=== PATIENT | female | born 1965 | race Caucasian/White ===

== ENCOUNTER 2019-12-15 16:56 | Emergency (ER) | payer BC, OTHER ==
--- OUTSIDE RECORDS SUMMARY | 2019-12-15 16:59 | XMS REPORT | Summary of Care ---
:1965 Author Organization [facility] Address [address] [place] [id number] Care Team Providers Name Role Phone Jarrod Mahoney MD Primary Care Provider Reason for Referral Radiology Services (Routine) Status Reason Specialty Diagnoses / Referred By Referred To Procedures Contact Contact Closed Diagnostic Diagnoses Pain in joint, multiple sites Larisa Schroedera, Radiology Procedures XR HAND 3+ VW BILATERAL MD [address] [place] [address] Radiology Services (Routine) Status Reason Specialty Diagnoses / Referred By Referred To Procedures Contact Contact Closed Diagnostic Diagnoses Pain in joint, multiple sites Jenifer Schroederjana, Radiology Procedures XR HAND 3+ VW BILATERAL MD [address] [place] [address] Reason for Visit Auth/Cert Status Reason Specialty Diagnoses / Procedures Referred By C ontact Referred To Contact Radiology Diagnoses Pain in unspecified joint Adc X-Ray Procedures CHG CHEST X-RAY [address] [place] [address] Phone: Fax: Encounter Details Date Type Department Care Team Description 03/06/2019 Hospital Encounter On license of [facility]iolog y Arrived [facility] [address] [place] [address] [place] [address] [place] [phone] Allergies Active Allergy Reactions Severity Noted Date Comments Bee Sting / Venom Swelling 06/08/2017 documented as of this encounter (statuses as of 03/07/2019) Medications Medication Sig Dispensed Refills Start Date End Date Status buprenorphine (BUTRANS) Apply to skin. 0 Active 20 mcg/hour [facility] buprenorphine HCl Place in cheeks 0 Active (BELBUCA) 150 mcg Film 2 (two) times daily as needed. gabapentin 800 mg Take 800 mg by 0 Active tablet mouth 3 (three) times daily. DULoxetine 60 mg Take 1 capsule 90 capsule 3 08/03/2017 Active capsuleIndications: by mouth daily. Anxiety and depression pantoprazole 40 mg EC Take 1 tablet by 90 tablet 1 09/05/2017 Active tabletIndications: mouth daily. Gastroesophageal reflux disease without esophagitis cyclobenzaprine 5 mg Take 1 tablet by 30 tablet 0 10/30/2017 Active tablet mouth 3 (three) times daily. acetaminophen-codeine Take 2 tablets 20 tablet 0 07/08/2018 Active (TYLENOL-CODEINE #3) by mouth every 6 300-30 mg tablet (six) hours as needed for Pain (scale 7-10) (alternate with ibuprofen). sucralfate 1 gram Take 1 tablet by 30 tablet 0 01/23/2019 Active tabletIndications: mouth before Peptic ulcer disease meals and at bedtime. dicyclomine (BENTYL) 10 Take 1 capsule 30 capsule 0 01/23/2019 Active mg capsuleIndications: by mouth every 8 Peptic ulcer disease (eight) hours as needed for Abdominal pain. ondansetron 4 mg Take 1 tablet by 20 tablet 0 01/23/2019 Active disintegrating mouth every 8 tabletIndications: (eight) hours as Peptic ulcer disease needed for Nausea and Vomiting (N/V). sennosides-docusate Take 1 tablet by 30 tablet 0 01/23/2019 Active sodium (COLACE 2-IN-1) mouth daily. 8.6-50 mg per tabletIndications: Constipation, unspecified constipation type documented as of this encounter (statuses as of 03/07/2019) Active Problems Problem Noted Date Vaginal hemorrhage 07/08/2018 Chronic low back pain 04/01/2017 Follow-up examination, following other surgery 012 documented as of this encounter (statuses as of 03/07/2019) Social History Tobacco Use Types Packs/Day Years Used Date Current Every Day Smoker Cigarettes 0.5 Smokeless Tobacco: Former User Q uit: 10/05/2011 Alcohol Use Drinks/Week oz/Week Comments No Sex Assigned at Date Recorded Not on file Job Start Date Occupation Industry Not on file Not on file Not on file Travel History Travel Start Travel End No recent travel history available. documented as of this encounter Last Filed Vital Signs Not on filedocumented in this encounter Plan of Treatment Health Maintenance Due Date Last Done Comments HEPATITIS C (HCV) SCREEN 1965 PNEUMOCOCCAL 0-64 YEARS COMBINED SERIES (1 of 1 - 1969 PPSV23) DTaP,Tdap,and Td Vaccines (1 - Tdap) 1982 MAMMOGRAM 2003 PAP SMEAR 02/03/2010 02/03/2007 COLONOSCOPY 2013 Zoster Recombinant Vaccine (SHINGRIX) (1 of 2) 2013 LUNG CANCER SCREEN: Recommended for age 55-80 with 30 2018 + pack year history INFLUENZA VACCINE 04/08/2019 documented as of this encounter Procedures Procedure Name Priority Date/Time Associated Diagnosis Comme nts XR HAND 3+ VW Routine 03/06/2019 12:34 PM Pain in joint, Resul ts for this BILATERAL CDT multiple sites procedure are in the results section. documented in this encounter Results XR HAND 3+ VW BILATERAL (03/06/2019 12:34 PM CDT) Specimen Narrative Performed At This result has an attachment that is no t available. HISTORY:Pain. PACS/VR/DOSE FINDINGS: AP, lateral, oblique views of right hand as well as left hand showed no acute fracture or dislocation. Old, healed f racture deformity in the distal shaft of metacarpal bone of right little fi nger noted. Mild degenerative type arthritis seen in the interphal angeal joints of all the fingers and thumb, in the intercarpal joint betwee n scaphoid and multangular bones and slightly more degenerative arthr itis noted in the carpometacarpal joint of the right thumb and left thum b. No bony erosions or juxta-articular osteoporosis detected. No soft tiss ue calcifications. CONCLUSIONS: No acute fracture or dislocation in right hand or left hand. Procedure Note [facility], Radiant Results Inft User - 2018 12:42 PM CDT HISTORY: Pain. FINDINGS: AP, lateral, oblique views of right hand as well as left hand showed no acute fracture or dislocation. Old, healed fracture deformity in the distal shaft of metacarpal bone of r ight little finger noted. Mild degenerative type arthritis seen in the interphalangeal joints of all the fingers and thumb, in the intercarpa l joint between scaphoid and multangular bones and slightly more dege nerative arthritis noted in the carpometacarpal joint of the right thumb and left thumb. No bony erosions or juxta-articular osteoporosis detected . No soft tissue calcifications. CONCLUSIONS: No acute fracture or disloc ation in right hand or left hand. Performing Organization Address City/State/Zipcode Phone Number PACS/VR/DOSE documented in this encounter Visit Diagnoses Diagnosis Pain in joint, multiple sites documented in this encounter Insurance Payer Benefit Plan / Subscriber ID Effective Phone Address T ype Group Dates [facility] MEDICARE [id number] 2019-Erica butler [facility] HEALTHCARE COMPLETE nt PPO MEDICARE CHOICE ADVANTAGE documented as of this encounter
--- OUTSIDE RECORDS SUMMARY | 2019-12-15 16:59 | XMS REPORT | Summary of Care ---
:1965 Author Organization [facility] Address [address] [place] [address] Care Team Providers Name Role Phone Jarrod Mahoney MD Primary Care Provider Reason for Referral Radiology Services (Routine) Status Reason Specialty Diagnoses / Referred By Referred To Procedures Contact Contact Closed Diagnostic Diagnoses Pain in joint, multiple sites Ivory Schroeder, Radiology Procedures XR FOOT 3+ VW RIGHT MD [address] [place] [address] Radiology Services (Routine) Status Reason Specialty Diagnoses / Referred By Referred To Procedures Contact Contact Closed Diagnostic Diagnoses Pain in joint, multiple sites Ivory Schroeder, Radiology Procedures XR FOOT 3+ VW RIGHT MD [address] [place] [address] Reason for Visit Auth/Cert Status Reason Specialty Diagnoses / Procedures Referred By C ontact Referred To Contact Radiology Diagnoses Pain in unspecified joint Adc X-Ray Procedures CHG CHEST X-RAY [address] [place] [address] Phone: Fax: Encounter Details Date Type Department Care Team Description 03/06/2019 Hospital Encounter [facility]iolog [facility] Arrived [facility] [address] [place] [address] [place] [address] [place] [phone] Allergies Active Allergy Reactions Severity Noted Date [...] Priority Date/Time Associated Diagnosis Comme nts XR FOOT 3+ VW Routine 03/06/2019 12:33 PM Pain in joint, Resu lts for this RIGHT CDT multiple sites procedure are in the results section. documented in this encounter Results XR FOOT 3+ VW RIGHT (03/06/2019 12:33 PM CDT) Specimen Narrative Performed At This result has an attachment that is no t available. HISTORY:Pain. PACS/VR/DOSE FINDINGS: AP, lateral, oblique views of right foot aubrey wed no acute fracture or dislocation. Mild first metatarsus valgus deformity noted with mild degenerative changes in first MTP joint. No heel spur. . CONCLUSIONS: No acute fracture or dislocation in right foot. Procedure Note [facility], Radiant Results Inft User - 2018 12:44 PM CDT HISTORY: Pain. FINDINGS: AP, lateral, oblique views of right foot showed no acute fracture or dislocation. Mild first metatarsus va lgus deformity noted with mild degenerative changes in first MTP joint. No heel spur.. CONCLUSIONS: No acute fracture or disloc ation in right foot. Performing Organization Address City/State/Zipcode Phone Number PACS/VR/DOSE documented in this encounter Visit Diagnoses Diagnosis Pain in joint, multiple sites documented in this encounter Insurance Payer Benefit Plan / Subscriber ID Effective Phone Address T ype Group Dates [facility] MEDICARE [id number] 2019-Erica butler [facility] HEALTHCARE COMPLETE nt PPO MEDICARE CHOICE ADVANTAGE documented as of this encounter
--- OUTSIDE RECORDS SUMMARY | 2019-12-15 16:59 | XMS REPORT ---
:1965 Author Organization [employer] Care Team Providers Name Role Phone Irlanda Schroederbambi Provider Role Unavailable Allergies No Known Allergies Problems Problem Type Condition Code Onset Dates Condition Statu s Problem Chronic or unspecified peptic ulcer, K27.4 Active site unspecified, with hemorrhage Problem Fibromyalgia M79.7 Active Problem Chronic pain syndrome G89.4 Active Problem Anxiety F41.9 Active Problem Arthralgia of multiple joints M25.50 Active Problem Encounter for immunization Z23 A ctive Problem Chronic hepatitis C B18.2 Active Medications No Known Medications Results No Known Results Summary Purpose [employer]Clinical[employer] Submission
--- OUTSIDE RECORDS SUMMARY | 2019-12-15 16:59 | XMS REPORT | Continuity of Care Document ---
:1965 Author Organization [employer] Information [place] Care Team Providers Name Role Phone Fishidy Unavailable Un available Problems Problem Status Onset Classification Date Comments Sourc e Date Reported Vaginal Active 12/04/2019 [facility] hemorrhage 8 Health Chronic low back Active 12/04/2019 [facility] pain 7 Health Follow-up Active 12/04/2019 [facility] examination, 2 Health following other surgery Chronic or Active Problem 05/27/[address] unspecified of [place] peptic ulcer, site unspecified, with hemorrhage Fibromyalgia Active Problem 05/27/2019 [facility] [place] Chronic pain Active Problem 05/27/2019 [facility] syndrome [facility] [place] Anxiety Active Problem 05/27/2019 [facility] [place] Arthralgia of Active Problem 05/27/2019 [facility] multiple joints of H ou Encounter for Active Problem 05/27/2019 [facility] immunization [facility] [place] Chronic Active Problem 05/27/2019 [facility] hepatitis C of [place] Pain in joint, Active 03/07/2019 [facility] multiple sites Healt h Arthralgia of Active 03/07/2019 [facility] hip, unspecified Hea lth laterality Left knee pain, Active 10/27/2019 [facility] B unspecified Health chronicity COVID-19 Active 11/30/2019 [facility] Health Esophageal Active 12/04/2019 [facility] dysphagia Health Medications Medication Details Route Status Patient Ordering Order Source Instructions Provider Date methylPREDNISolone Take by Oral Active [facility] (MEDROL, SEAMUS,) 4 mg mouth 2019 Heal tablets SEE-INSTRUC TIONS. follow package directions ibuprofen 600 mg Take 1 Oral Active 06/05/ [facility] tablet tablet by 2018 Health mouth every 8 (eight) hours as needed for Pain (scale 4-6). sucralfate 1 gram Take 1 Oral Active 01/23/ [facility] tablet tablet by 2018 Health mouth before meals and at bedtime. dicyclomine (BENTYL) Take 1 Oral Active 01/23/ [facility] 10 mg capsule capsule by 2019 Health mouth every 8 (eight) hours as needed for Abdominal pain. ondansetron 4 mg Take 1 Oral Active 01/23/ [facility] disintegrating tablet by 2018 Health tablet mouth every 8 (eight) hours as needed for Nausea and Vomiting (N/V). sennosides-docusate Take 1 Oral Active 01/23/ [facility] sodium (COLACE tablet by 2018 [facility] 2-IN-1) 8.6-50 mg mouth per tablet daily. acetaminophen-codein Take 2 Oral Active 07/08/ [facility] e (TYLENOL-CODEINE tablets by 2018 He alth #3) 300-30 mg tablet mouth every 6 (six) hours as needed for Pain (scale 7-10) (alternate with ibuprofen). cyclobenzaprine 5 mg Take 1 Oral Active 10/30/ [facility] tablet tablet by 2018 Health mouth 3 (three) times daily. pantoprazole 40 mg Take 1 Oral Active 09/05/ [facility] EC tablet tablet by 2018 Health mouth daily. DULoxetine 60 mg Take 1 Oral Active 08/03/ [facility] capsule capsule by 2016 Health mouth daily. buprenorphine Apply to Transdermal Active [facility] (BUTRANS) 20 skin. (Apply To Health mcg/hour [facility] Skin) buprenorphine HCl Place in Buccal Active [facility] (BELBUCA) 150 mcg cheeks 2 Healt h Film (two) times daily as needed. gabapentin 800 mg Take 800 mg Oral Active [facility] tablet by mouth 3 Health (three) times daily. Allergies, Adverse Reactions, Alerts Substance Category Reaction Severity Reaction Status Date Comments S ource type Reported Bee Sting / Swelling Propensity Active [facility] Venom to adverse 7 Healt h reactions Immunizations No Data Provided for This Section Results No Data Provided for This Section Pathology Reports No Data Provided for This Section Diagnostic Reports Report Value Date Source XR KNEE <3 VW LEFT Maintained joint interval 10/26/2019 [facility] XR LUMBAR SPINE 2 VW HISTORY:Low back pain. 03/06/2019 [facility] Health FINDINGS: AP and lateral views of lumbar spines are obtained and compared with 02/15/2017 study. 6 lumbar vertebrae with no acute compression fracture or dislocation. No aggressive bone lesions. Exaggerated lumbar lordosis in the lateral view and lower lumbar levoscoliosis in the AP view noted, associated w ith moderate degenerative disc disease affecting right side of L5-L6. Mild changes of degenerative disc disease noted at L4-L5 with slightly narrow ed disc space and osteophytes along the ventral and lateral verteb ral margins. Mild facet arthritis noted at lower 3 lumbar lev els. Comparison with the previous study of 06/27/2017 showed no significant interval change. CONCLUSIONS: 6 lumbar vertebral body with lower lumbar levoscoliosis, exaggerated lordosis, degenerative disc disease at L4-L5 and L5-L6, lower 3 lumbar level facet arthritis, essentially unchan ged when compared to 02/15/2017 study. [facility], Radiant Results Inft U ser - 03/06/2019 12:46 PM CDTHISTORY: Low back pain. FINDINGS: AP and lateral views of lumbar spines are obtained and compared with 02/15/2017 study. 6 lumbar vertebrae with no acute compression fracture or dislocation. No aggressive bone lesions. Exaggerated lumbar lordosis in the lateral view and lower lumbar levoscoliosis in the AP view noted, associated w ith moderate degenerative disc disease affecting right side of L5-L6. Mild changes of degenerative disc disease noted at L4-L5 with slightly narrow ed disc space and osteophytes along the ventral and lateral verteb ral margins. Mild facet arthritis noted at lower 3 lumbar lev els. Comparison with the previous study of 06/27/2017 showed no significant interval change. CONCLUSIONS: 6 lumbar vertebral body with lower lumbar levoscoliosis, exaggerated lordosis, degenerative disc disease at L4-L5 and L5-L6, lower 3 lumbar level facet arthritis, essentially unchan ged when compared to 02/15/2017 study. XR FOOT 3+ VW RIGHT HISTORY:Pain. 03/06/2019 [facility] Health FINDINGS: AP, lateral, oblique views of right fo ot showed no acute fracture or dislocation. Mild first metatarsus valgus def ormity noted with mild degenerative changes in first MTP joint. No heel spur.. CONCLUSIONS: No acute fracture or dislocation in right foot. [facility], Radiant Results Inft User - 03/06/2019 12: 44 PM CDTHISTORY: Pain. FINDINGS: AP, lateral, oblique views of right fo ot showed no acute fracture or dislocation. Mild first metatarsus valgus def ormity noted with mild degenerative changes in first MTP joint. No heel spur.. CONCLUSIONS: No acute fracture or dislocation in right foot. XR SACROILIAC JOINTS <3 HISTORY:Pain. 03/06/2019 [facility] Hea lth VW FINDINGS: AP and both right and left oblique vie ws of the pelvis showed no acute fracture or dislocation. No aggressive bon e lesions. No significant changes of arthritis in the sacroiliac joints or hip joints. Lumbar levoscoliosis with degenerative disc disease in the right side of L4-L5 noted. Mild constipation noted. CONCLUSIONS: No acute fracture or dislocation in pelvis. [facility], Radiant Results Inft User - 03/06/2019 12: 43 PM CDTHISTORY: Pain. FINDINGS: AP and both right and left oblique vie ws of the pelvis showed no acute fracture or dislocation. No aggressive bon e lesions. No significant changes of arthritis in the sacroiliac joints or hip joints. Lumbar levoscoliosis with degenerative disc disease in the right side of L4-L5 noted. Mild constipation noted. CONCLUSIONS: No acute fracture or dislocation in pelvis. XR HIPS 2 VW LEFT HISTORY:Pain. 03/06/2019 [facility] Health FINDINGS: AP and lateral views of left hip showe d no acute fracture or dislocation. No significant changes of arthritis or aggressive bone lesions seen. No signs of AVN in the femoral head. A sma ll benign cyst noted in the neck of the femur. CONCLUSIONS: Essentially normal study. [facility]06/2019 12: 42 PM CDTHISTORY: Pain. FINDINGS: AP and lateral views of left hip showe d no acute fracture or dislocation. No significant changes of arthritis or aggressive bone lesions seen. No signs of AVN in the femoral head. A sma ll benign cyst noted in the neck of the femur. CONCLUSIONS: Essentially normal study. XR HAND 3+ VW BILATERAL HISTORY:Pain. 03/06/2019 [facility] Hea lth FINDINGS: AP, lateral, oblique views of right tang nd as well as left hand showed no acute fracture or dislocation. Old, he aled fracture deformity in the distal shaft of metacarpal bone of right lit tle finger noted. Mild degenerative type arthritis seen in the int erphalangeal joints of all the fingers and thumb, in the intercarpal joint between scaphoid and multangular bones and slightly more degenerative arthritis noted in the carpometacarpal joint of the right thumb and lef t thumb. No bony erosions or juxta-articular osteoporosis detected. No sof t tissue calcifications. CONCLUSIONS: No acute fracture or dislocation in right hand or left hand. [facility], Radiant Results Inft User - 03/06/2019 12: 42 PM CDTHISTORY: Pain. FINDINGS: AP, lateral, oblique views of right tang nd as well as left hand showed no acute fracture or dislocation. Old, he aled fracture deformity in the distal shaft of metacarpal bone of right lit tle finger noted. Mild degenerative type arthritis seen in the int erphalangeal joints of all the fingers and thumb, in the intercarpal joint between scaphoid and multangular bones and slightly more degenerative arthritis noted in the carpometacarpal joint of the right thumb and lef t thumb. No bony erosions or juxta-articular osteoporosis detected. No sof t tissue calcifications. CONCLUSIONS: No acute fracture or dislocation in right hand or left hand. XR FOOT 3+ VW LEFT HISTORY:Pain. 03/06/2019 [facility] Health FINDINGS: AP, lateral, oblique views of left ana cristina t showed no acute fracture or dislocation. Mild first metatarsus valgus not ed with minimal degenerative arthritis in first MTP joint. No he el spur. CONCLUSIONS: No acute fracture or dislocation in left foot. [facility], Radiant Results Inft User - 03/06/2019 12: 40 PM CDTHISTORY: Pain. FINDINGS: AP, lateral, oblique views of left ana cristina t showed no acute fracture or dislocation. Mild first metatarsus valgus not ed with minimal degenerative arthritis in first MTP joint. No he el spur. CONCLUSIONS: No acute fracture or dislocation in left foot. XR CHEST 2 VW HISTORY: Pain in joint, multiple sites. 03/06/20 19 [facility] Health TECHNIQUE: PA and lateral views of the chest are obtained. Comparison is made with 10/30/2017 study. FINDINGS: No acute pneumonia detected. No pneumo thorax or pleural effusion or pulmonary congestion. Cardiothoracic ratio of approximately 11.8/27.2 cm is consistent with normal cardiac size. Mild obs tructive lung disease, calcified granuloma in the retrosternal anterior left lung and lower cervical spine surgical changes noted. No compre ssion fracture deformity in the thoracic vertebral bodies or any aggressive bone lesions visualized. CONCLUSIONS: Mild pulmonary emphysema. No acute cardiomegaly disease. [facility], [facility] Results Inft U ser - 03/06/2019 12:35 PM CDTHISTORY: Pain in joint, multiple sites. TECHNIQUE: PA and lateral views of the chest are obtained. Comparison is made with 10/30/2017 study. FINDINGS: No acute pneumonia detected. No pneumo thorax or pleural effusion or pulmonary congestion. Cardiothoracic ratio of approximately 11.8/27.2 cm is consistent with normal cardiac size. Mild obs tructive lung disease, calcified granuloma in the retrosternal anterior left lung and lower cervical spine surgical changes noted. No compre ssion fracture deformity in the thoracic vertebral bodies or any aggressive bone lesions visualized. CONCLUSIONS: Mild pulmonary emphysema. No acute cardiomegaly disease. Consultation Notes No Data Provided for This Section Discharge Summaries No Data Provided for This Section History and Physicals No Data Provided for This Section Vital Signs Vital Sign Value Date Comments Source Systolic (mm Hg) 158 12/03/2019 [facility] Health Diastolic (mm Hg) 96 12/03/2019 [facility] Healt h Heart Rate 59 12/03/2019 [facility] Health Respitory Rate 20 12/03/2019 [facility] Health Temperature Oral (F) 36.33 Mari 12/03/2019 [facility] He alth Temperature Oral (F) 36.78 Mari 11/30/2019 [facility] He alth Height 172.7 cm 11/30/2019 [facility] Health Weight 59 11/30/2019 [facility] Health Systolic (mm Hg) 151 10/26/2019 [facility] Health Diastolic (mm Hg) 81 [facility] 117 10/26/2019 [facility] Height 172.7 cm 10/26/2019 [facility] Weight 56.7 10/26/2019 [facility] Encounters Location Location Encounter Encounter Reason Attending ADM DC Stat us Source Details Type Number For Provider Date Date Visit [facility] Orders [id number] No Doctor 03/06 [facility] Only [facility] [id number] Radiology 03/06 03/06 [facility] Encounter /2018 [facility] [id number] Radiology 03/06 03/06 [facility] Encounter /2018 [facility] [id number] Radiology 03/06 03/06 [facility] Encounter /2018 [facility] [id number] Radiology 03/06 03/06 [facility] Encounter /2018 [facility] [id number] Radiology 03/06 03/06 [facility] Encounter /2018 [facility] [id number] Radiology 03/06 03/06 [facility] [id number] Radiology 03/06 03/06 [facility] [id number] Radiology 03/06 03/07 [facility] Encounter /2018 Eze [facility] Radiology [facility] Health Office [id number] Mino 10/25 10/25 [facility] Arnaud [facility]ADOR /2019 Health Surgery- [facility] [id number] Mino 10/25 10/26 [facility] Encounter Arnaud AMADOR /2019 [facility] Orthopedics - Radiology [facility] Health Telephone [id number] Nizar 11/29 [facility] Nurse [id number] Nizar 11/29 11/29 [facility] /2019 He helio Merchant MD - [facility] [id number] Nizar 12/02 12/02 [facility] Enrrique [facility] Procedures Procedure Code Date Perfomer Comments Source ESOPHAGOGASTRODUODENOSCOPY [id number] 12/03/19 [facility] 20 Health EGD (ENDO) 94324 12/03/19 Williamson [facility] 20 Health CONSENT/REFUSAL FOR DIAGNOSIS 60528 12/03/19 Doctor [facility] 20 Unassigned Health ASSIGNMENT OF BENEFITS 92994 12/03/19 Doctor [facility] 20 Unassigned Health DAY SURGERY - ADC 34808 12/03/19 Doctor [facility] 20 Unassigned Health XR KNEE <3 VW LEFT 94243 10/26/19 Arnaud [facility] 20 Health XR SACROILIAC JOINTS <3 VW 61295 03/06/20 [facility] 19 Health XR LUMBAR SPINE 2 VW 81472 03/06/20 Requisition [facility] 19 Health XR HIPS 2 VW LEFT 00907 03/06/20 Requisition [facility] 19 Health XR HAND 3+ VW BILATERAL 96035 03/06/20 [facility]quisition [facility] Health XR FOOT 3+ VW RIGHT 60424 03/06/20 Requisition [facility] 19 Health XR FOOT 3+ VW LEFT 57107 03/06/20 Requisition [facility] 19 Health XR CHEST 2 VW 54825 03/06/20 Requisition [facility] 19 Health Assessment and Plan No Data Provided for This Section Plan of Care Plan of Care Date Source SURGICAL PATHOLOGY EXAM 12/03/2019 [facility] Health LAB Routine ONCE for 1 Occurrences starting 12/03/2019 SURGICAL PATHOLOGY EXAM 12/03/2019 [facility] Health LAB STAT 12/03/2019 8:55 AM CDT Upcoming EncountersDateTypeSpecialtyCare TeamDescription [facility] 12/03/2019 Hospital Encounter Surgery Felix Trujillo MD[address] [place] [id number] [facility] [place] [phone] (Fax) 12/03/2019 Anesthesia Event Surgery Herbie Kirkland[address] [phone] (Fax) 12/03/2019 Surgery Surgery Felix Trujillo MD[address] [id number] [place] [phone] (Fax) ESOPHAGOGASTRODUODENOSCOPY Health MaintenanceDue DateLast DoneComments HEPATITIS C (HCV) SCREEN 1965 PNEUMOCOCCAL 0-64 YEARS COMBINED SERIES (1 of 1 - PPSV23) 1969 DTaP,Tdap,and Td Vaccines (1 - Tdap) 1974 Breast Cancer Screening (MAMMOGRAM) 2003 PAP SMEAR 02/03/2010 02/03/2007 COLONOSCOPY 2013 Zoster Recombinant Vaccine (SHINGRIX) (1 of 2) 2013 LUNG CANCER SCREEN: Recommended for age 55-80 with 30 + pack year history 2018 INFLUENZA VACCINE (#1) 2019 documented as of this encounter Upcoming EncountersDateTypeSpecialtyCare TeamDescription [facility] 12/03/2019 Hospital Encounter Surgery Felix Trujillo MD[address] [id number] [place] [phone] (Fax) 12/03/2019 Anesthesia Event Surgery Esdras Kirklandian, [address] [phone] (Fax) 12/03/2019 Surgery Surgery Felix Trujillo MD[address] [id number] [place] [phone] (Fax) ESOPHAGOGASTRODUODENOSCOPY Scheduled OrdersNameTypePriorityAssociated DiagnosesOrder Sc hedule CORONAVIRUS COVID-19 TESTING LAB Routine COVID-19 Expected: 11/30/2019, Expires: 11/29/2020 Health MaintenanceDue DateLast DoneComments HEPATITIS C (HCV) SCREEN 1965 PNEUMOCOCCAL 0-64 YEARS COMBINED SERIES (1 of 1 - PPSV23) 1969 DTaP,Tdap,and Td Vaccines (1 - Tdap) 1974 Breast Cancer Screening (MAMMOGRAM) 2003 PAP SMEAR 02/03/2010 02/03/2007 COLONOSCOPY 2013 Zoster Recombinant Vaccine (SHINGRIX) (1 of 2) 2013 LUNG CANCER SCREEN: Recommended for age 55-80 with 30 + pack year history 2018 INFLUENZA VACCINE (#1) 2019 documented as of this encounter CORONAVIRUS COVID-19 TESTING 11/30/2019 [facility] Health LAB Routine COVID-19 Expected: 11/30/2019, Expires: 11/29/2020 INFLUENZA VACCINE (#1) 2019 [facility] Upcoming EncountersDateTypeSpecialtyCare TeamDescription [facility] Health 03/06/2019 Appointment Radiology 03/06/2019 Appointment Radiology 03/06/2019 Appointment Radiology 03/06/2019 Appointment Radiology 03/06/2019 Appointment Radiology 03/06/2019 Appointment Radiology 03/06/2019 Appointment Radiology Health MaintenanceDu DateLast DoneComments HEPATITIS C (HCV) SCREEN 1965 PNEUMOCOCCAL 0-64 YEARS COMBINED SERIES (1 of 1 - PPSV23) 1969 DTaP,Tdap,and Td Vaccines (1 - Tdap) 1982 MAMMOGRAM 2003 PAP SMEAR 02/03/2010 02/03/2007 COLONOSCOPY 2013 Zoster Recombinant Vaccine (SHINGRIX) (1 of 2) 2013 LUNG CANCER SCREEN: Recommended for age 55-80 with 30 + pack year history 2018 INFLUENZA VACCINE 04/08/2019 documented as of this encounter LUNG CANCER SCREEN: Recommended for age 55-80 2018 [facility] with 30 + pack year history LUNG CANCER SCREEN: Recommended for age 55-80 2018 [facility] with 30 + pack year history Zoster Recombinant Vaccine (SHINGRIX) (1 of 2) 2013 [facility] Health COLONOSCOPY 2013 [facility] PAP SMEAR 02/03/2010 [facility] PAP SMEAR 02/03/2010 [facility] MAMMOGRAM 2003 [facility] Breast Cancer Screening (MAMMOGRAM) 2003 [facility] DTaP,Tdap,and Td Vaccines (1 - Tdap) 1982 [facility] Health DTaP,Tdap,and Td Vaccines (1 - Tdap) 1974 [facility] Health PNEUMOCOCCAL 0-64 YEARS COMBINED SERIES (1 of 1 1969 [facility] - PPSV23) HEPATITIS C (HCV) SCREEN 1965 [facility] HEPATITIS C (HCV) SCREEN 1965 [facility] Social History Social History Date Source Tobacco UseTypesPacks/DayYears UsedDate 11/30/2019 [facility] Current Every Day Smoker Cigarettes 0.5 Smokeless Tobacco: Former User Quit: 10/05/2011 Tobacco Cessation: Ready to Quit: No Alcohol UseDrinks/Weekoz/WeekComments No Sex Assigned at BirthDate Recorded Not on file Job Start DateOccupationIndustry Not on file Not on file Not on file Travel HistoryTravel StartTravel End No recent travel history available. COVID-19 ExposureResponseDate Recorded In the last month, have you been in cont act with someone who was confirmed or suspected to have Coronavirus / COVID-19? No / Unsure 12/03/2019 7:43 AM CDT documented as of this encounter Family History No Data Provided for This Section Advance Directives No Data Provided for This Section Functional Status No Data Provided for This Section
--- OUTSIDE RECORDS SUMMARY | 2019-12-15 16:59 | XMS REPORT | Summary of Care ---
:1965 Author Organization [facility] Address [address] [place] [id number] Care Team Providers Name Role Phone Jarrod Mahoney MD Primary Care Provider Reason for Referral Radiology Services (Routine) Status Reason Specialty Diagnoses / Referred By Referred To Procedures Contact Contact Closed Diagnostic Diagnoses Arthralgia of hip, unspecified laterality [facility] Procedures XR HIPS 2 VW LEFT [address] [place] [address] Radiology Services (Routine) Status Reason Specialty Diagnoses / Referred By Referred To Procedures Contact Contact Closed Diagnostic Diagnoses Arthralgia of hip, unspecified laterality [facility], [facility] Procedures XR HIPS 2 VW LEFT [address] [place] [address] Reason for Visit Auth/Cert Status Reason Specialty Diagnoses / Procedures Referred By C ontact Referred To Contact Radiology Diagnoses Pain in unspecified joint [facility] X-Ray Procedures CHG CHEST X-RAY [address] [place] [address] Phone: Fax: Encounter Details Date Type Department Care Team Description 03/06/2019 Hospital Encounter [facility] Radiolog y Arrived [facility] [address] [place] [address] [place] [address] [place] [address] Allergies Active Allergy Reactions Severity Noted Date [...] Priority Date/Time Associated Diagnosis Comme nts XR HIPS 2 VW LEFT Routine 03/06/2019 12:34 PM Arthralgia of hi p, Results for this CDT unspecified procedure are i n laterality the results section. documented in this encounter Results XR HIPS 2 VW LEFT (03/06/2019 12:34 PM CDT) Specimen Narrative Performed At This result has an attachment that is no t available. HISTORY:Pain. PACS/VR/DOSE FINDINGS: AP and lateral views of left hip showed no a cute fracture or dislocation. No significant changes of arthritis or ag gressive bone lesions seen. No signs of AVN in the femoral head. A small maude ign cyst noted in the neck of the femur. CONCLUSIONS: Essentially normal study. Procedure Note [facility], Radiant Results Inft User - 2018 12:42 PM CDT HISTORY: Pain. FINDINGS: AP and lateral views of left h ip showed no acute fracture or dislocation. No significant changes of a rthritis or aggressive bone lesions seen. No signs of AVN in the femoral hea d. A small benign cyst noted in the neck of the femur. CONCLUSIONS: Essentially normal study. Performing Organization Address City/State/Zipcode Phone Number PACS/VR/DOSE documented in this encounter Visit Diagnoses Diagnosis Arthralgia of hip, unspecified lateralit y documented in this encounter Insurance Payer Benefit Plan / Subscriber ID Effective Phone Address T ype Group Dates [employer] MEDICARE [id number] 2019-Erica butler Adv HEALTHCARE COMPLETE nt PPO MEDICARE CHOICE ADVANTAGE documented as of this encounter
--- OUTSIDE RECORDS SUMMARY | 2019-12-15 17:00 | XMS REPORT | Summary of Care ---
:1965 Author Organization [facility] - Health Address [address] [place] [address] Care Team Providers Name Role Phone Jarrod Mahoney MD Primary Care Provider Encounter Details Date Type Department Care Team Description 03/06/2019 Orders Only [facility] Doctor Unassigned, No [address] [facility] [place] [address] [address] [place] [address] Allergies Active Allergy Reactions Severity Noted Date Comments Bee Sting / Venom Swelling 06/08/2017 documented as of this encounter (statuses as of 03/06/2019) Medications Medication Sig Dispensed Refills Start Date [...] as of this encounter (statuses as of 03/06/2019) Active Problems Problem Noted Date Vaginal hemorrhage 07/08/2018 Chronic low back pain 04/01/2017 Follow-up examination, following other surgery 012 documented as of this encounter (statuses as of 03/06/2019) Social History Tobacco Use Types Packs/Day Years [...] filedocumented in this encounter Plan of Treatment Date Type Specialty Care Team Description 03/06/2019 Appointment Radiology 03/06/2019 Appointment Radiology 03/06/2019 Appointment Radiology 03/06/2019 Appointment Radiology 03/06/2019 Appointment Radiology 03/06/2019 Appointment Radiology 03/06/2019 Appointment Radiology Health Maintenance Due Date Last Done Comments [...] Name Priority Date/Time Associated Diagnosis Comme nts CONSENT/REFUSAL FOR Routine 03/06/2019 11:12 AM DIAGNOSIS AND TREATMENT CDT ASSIGNMENT OF BENEFITS Routine 03/06/2019 11:12 AM CDT documented in this encounter Results Not on filedocumented in this encounter Insurance Payer Benefit Plan / Subscriber ID Effective Phone Address T ype Group Dates [facility] MEDICARE [id number] 2019-Erica butler Adv HEALTHCARE COMPLETE nt PPO MEDICARE CHOICE ADVANTAGE documented as of this encounter
--- OUTSIDE RECORDS SUMMARY | 2019-12-15 17:00 | XMS REPORT | Summary of Care ---
:1965 Author Organization [facility] Address [address] [place] [address] Care Team Providers Name Role Phone Jarrod Mahoney MD Primary Care Provider Reason for Visit Auth/Cert Status Reason Specialty Diagnoses / Procedures Referred By C ontact Referred To Contact Radiology Diagnoses Pain in unspecified joint Adc X-Ray Procedures CHG CHEST X-RAY [address] [place] [address] Phone: Fax: Encounter Details Date Type Department Care Team Description 03/06/2019 Hospital Encounter [facility], [facility]–1983 Radiolog y Arrived [facility] [address] [place] [address] [place] [address] [place] [address] Allergies Active Allergy Reactions Severity [...] Priority Date/Time Associated Diagnosis Comme nts XR CHEST 2 VW Routine 03/06/2019 12:33 PM Pain in joint, Resul ts for this CDT multiple sites procedure are in the results section . documented in this encounter Results XR CHEST 2 VW (03/06/2019 12:33 PM CDT) Specimen Narrative Performed At This result has an attachment that is no t available. HISTORY: Pain in joint, multiple sites. PACS/VR/DOSE TECHNIQUE: PA and lateral views of the chest are obtai rena. Comparison is made with 10/30/2017 study. FINDINGS: No acute pneumonia detected. No pneumothorax or pleural effusion or pulmonary congestion. Cardiothoracic ratio of appro ximately 11.8/27.2 cm is consistent with normal cardiac size. Mild obstructi ve lung disease, calcified granuloma in the retrosternal anterior left lung and lower cervical spine surgical changes noted. No compression fracture deformity in the thoracic vertebral bodies or any aggressive bone l esions visualized. CONCLUSIONS: Mild pulmonary emphysema. No acute cardio megaly disease. Procedure Note [facility], Radiant Results Inft User - 2018 12:35 PM CDT HISTORY: Pain in joint, multiple sites. TECHNIQUE: PA and lateral views of the c hest are obtained. Comparison is made with 10/30/2017 study. FINDINGS: No acute pneumonia detected. N o pneumothorax or pleural effusion or pulmonary congestion. Cardiothoracic ratio of approximately 11.8/27.2 cm is consistent with normal cardiac size. Mild obstructive lung disease, calcified granuloma in the retrosternal anterior left lung and lower cervical spine surgical changes noted. N o compression fracture deformity in the thoracic vertebral bodies or any agg ressive bone lesions visualized. CONCLUSIONS: Mild pulmonary emphysema. N o acute cardiomegaly disease. Performing Organization Address City/State/Zipcode Phone Number PACS/VR/DOSE documented in this encounter Visit Diagnoses Diagnosis Pain in joint, multiple sites documented in this encounter Insurance Payer Benefit Plan / Subscriber ID Effective Phone Address T ype Group Dates [facility] MEDICARE [id number] 2019-Prese Me butler [facility] HEALTHCARE COMPLETE nt PPO MEDICARE CHOICE ADVANTAGE documented as of this encounter
--- OUTSIDE RECORDS SUMMARY | 2019-12-15 17:00 | XMS REPORT | Summary of Care ---
:1965 Author Organization [facility] Address [address] [place] [address] Care Team Providers Name Role Phone Jarrod Mahoney MD Primary Care Provider Reason for Visit Auth/Cert Status Reason Specialty Diagnoses / Procedures Referred By C ontact Referred To Contact Radiology Diagnoses Pain in unspecified joint Adc X-Ray Procedures CHG CHEST X-RAY [address] [place] [address] Phone: Fax: Encounter Details Date Type Department Care Team Description 03/06/2019 Hospital Encounter [facility] Radi[facility] Arrived [facility] [address] [place] [address] [place] [address] [place] [address] Allergies Active Allergy Reactions Severity [...] encounter Procedures Procedure Name Priority Date/Time Associated Comments Diagnosis XR SACROILIAC JOINTS Routine 03/06/2019 12:34 PM Pain in joint , Results for this <3 VW CDT multiple sites procedure are in the results section. documented in this encounter Results XR SACROILIAC JOINTS <3 VW (03/06/2019 12:34 PM CDT) Specimen Narrative Performed At This result has an attachment that is no t available. HISTORY:Pain. PACS/VR/DOSE FINDINGS: AP and both right and left oblique views of the pelvis showed no acute fracture or dislocation. No aggressive bone lesi ons. No significant changes of arthritis in the sacroiliac joints or hip j oints. Lumbar levoscoliosis with degenerative disc disease in the ri ght side of L4-L5 noted. Mild constipation noted. CONCLUSIONS: No acute fracture or dislocation in pelvi s. Procedure Note [facility], Radiant Results Inft User - 2018 12:43 PM CDT HISTORY: Pain. FINDINGS: AP and both right and left obl ique views of the pelvis showed no acute fracture or dislocation. No aggres sive bone lesions. No significant changes of arthritis in the sacroiliac j oints or hip joints. Lumbar levoscoliosis with degenerative disc dis ease in the right side of L4-L5 noted. Mild constipation noted. CONCLUSIONS: No acute fracture or disloc ation in pelvis. Performing Organization Address City/State/Zipcode Phone Number PACS/VR/DOSE documented in this encounter Visit Diagnoses Diagnosis Pain in joint, multiple sites documented in this encounter Insurance Payer Benefit Plan / Subscriber ID Effective Phone Address T ype Group Dates [facility] MEDICARE [id number] 2019-Erica butler Adv HEALTHCARE COMPLETE nt PPO MEDICARE CHOICE ADVANTAGE documented as of this encounter
--- OUTSIDE RECORDS SUMMARY | 2019-12-15 17:00 | XMS REPORT | Summary of Care ---
:1965 Author Organization [facility] Address [address] [place] [address] Care Team Providers Name Role Phone Jarrod Mahoney MD Primary Care Provider Reason for Referral Radiology Services (Routine) Status Reason Specialty Diagnoses / Referred By Referred To Procedures Contact Contact Closed Diagnostic Diagnoses Pain in joint, multiple sites Ivory Schroeder, Radiology Procedures XR FOOT 3+ VW LEFT MD [address] [place] [address] Radiology Services (Routine) Status Reason Specialty Diagnoses / Referred By Referred To Procedures Contact Contact Closed Diagnostic Diagnoses Pain in joint, multiple sites Ivory Schroeder, Radiology Procedures XR FOOT 3+ VW LEFT MD [address] [place] [address] Reason for Visit Auth/Cert Status Reason Specialty Diagnoses / Procedures Referred By C ontact Referred To Contact Radiology Diagnoses Pain in unspecified joint Adc X-Ray Procedures CHG CHEST X-RAY 2 VW [address] [facility] [place] [address] Phone: Fax: Encounter Details Date Type Department Care Team Description 03/06/2019 Hospital Encounter [facility] Radiolog y Arrived [facility] [address] [place] [address] [place] [address] [place] [phone] Allergies Active Allergy Reactions Severity Noted Date [...] Diagnosis Comme nts XR FOOT 3+ VW LEFT Routine 03/06/2019 12:33 PM Pain in joint, Results for this CDT multiple sites procedure are in the results section. documented in this encounter Results XR FOOT 3+ VW LEFT (03/06/2019 12:33 PM CDT) Specimen Narrative Performed At This result has an attachment that is no t available. HISTORY:Pain. PACS/VR/DOSE FINDINGS: AP, lateral, oblique views of left foot show ed no acute fracture or dislocation. Mild first metatarsus valgus noted wit h minimal degenerative arthritis in first MTP joint. No heel spu r. CONCLUSIONS: No acute fracture or dislocation in left foot. Procedure Note [facility], Radiant Results Inft User - 2018 12:40 PM CDT HISTORY: Pain. FINDINGS: AP, lateral, oblique views of left foot showed no acute fracture or dislocation. Mild first metatarsus va lgus noted with minimal degenerative arthritis in first MTP join t. No heel spur. CONCLUSIONS: No acute fracture or disloc ation in left foot. Performing Organization Address City/State/Zipcode Phone Number PACS/VR/DOSE documented in this encounter Visit Diagnoses Diagnosis Pain in joint, multiple sites documented in this encounter Insurance Payer Benefit Plan / Subscriber ID Effective Phone Address T ype Group Dates [employer] [id number] 2019-Erica butler Adv HEALTHCARE COMPLETE nt PPO MEDICARE CHOICE ADVANTAGE documented as of this encounter
--- OUTSIDE RECORDS SUMMARY | 2019-12-15 17:00 | XMS REPORT | Summary of Care ---
:1965 Author Organization [facility] Address [address] [place] [address] Care Team Providers Name Role Phone Jarrod Mahoney MD Primary Care Provider Reason for Visit Auth/Cert Status Reason Specialty Diagnoses / Procedures Referred By C ontact Referred To Contact Radiology Diagnoses Pain in unspecified joint Adc X-Ray Procedures CHG CHEST X-RAY [address] [place] [address] Phone: Fax: Encounter Details Date Type Department Care Team Description 03/06/2019 Hospital Encounter [facility] Radiology Canceled (ERROR) [address] [place] [address] [address] [facility] [place] [phone] Allergies Active Allergy Reactions Severity Noted Date [...] PNEUMOCOCCAL 0-64 YEARS COMBINED SERIES (1 of - 1969 PPSV23) DTaP,Tdap,and Td Vaccines (1 - Tdap) 1982 MAMMOGRAM 2003 PAP SMEAR 02/03/2010 02/03/2007 COLONOSCOPY 2013 Zoster Recombinant Vaccine (SHINGRIX) (1 of 2) 2013 LUNG CANCER SCREEN: Recommended for age 55-80 with 30 2018 + pack year history INFLUENZA VACCINE 04/08/2019 documented as of this encounter Results Not on filedocumented in this encounter Visit Diagnoses Diagnosis Pain in joint, multiple sites documented in this encounter Insurance Payer Benefit Plan / Subscriber ID Effective Phone Address T ype Group Dates [employer]IC[employer] [id number] 2019-Erica butler Adv HEALTHCARE COMPLETE nt PPO MEDICARE CHOICE ADVANTAGE documented as of this encounter
--- OUTSIDE RECORDS SUMMARY | 2019-12-15 17:01 | XMS REPORT | Summary of Care ---
:1965 Author Organization [facility] Address [address] [place] [address] Care Team Providers Name Role Phone Pcp, Does Not Have A Primary Care Provider Reason for Referral Radiology Services (Routine) Status Reason Specialty Diagnoses / Referred By Referred To Procedures Contact Contact New Request Diagnostic Diagnoses Left knee pain, unspecified chronicity Mino Lares Radiology Procedures XR KNEE <3 VW DI Griffin MD [address] [place] [address] Reason for Visit Reason Comments Follow-up Left knee pain Encounter Details Date Type Department Care Team Description 10/26/2019 Office Visit [facility]edic Mino Lares eft knee pain, Surgery- Steve Griffin MD unspecified chronicity [address], [address] (Primary Dx) [facility] [[email or web address] [place] [address] [place], [place] [phone] [address] Allergies Active Allergy Reactions Severity Noted Date Comments Bee Sting / Venom Swelling 06/08/2017 documented as of this encounter (statuses as of 10/26/2019) Medications Medication Sig Dispensed Refills Start Date End Date Status buprenorphine (BUTRANS) Apply to skin. 0 Active 20 mcg/hour PTWK buprenorphine HCl Place in cheeks 0 Active (BELBUCA) 150 mcg Film 2 (two) times daily as needed. gabapentin 800 mg tablet Take 800 mg by 0 Active mouth 3 (three) times daily. DULoxetine 60 [...] mg per tabletIndications: Constipation, unspecified constipation type ibuprofen 600 mg Take 1 tablet by 15 tablet 0 06/05/2019 Active tabletIndications: Pain mouth every 8 of left calf, Swelling (eight) hours as of lower leg needed for Pain (scale 4-6). methylPREDNISolone Take by mouth 21 Each 0 10/26/2019 Active (MEDROL, SEAMUS,) 4 mg SEE-INSTRUCTIONS tabletsIndications: Left . follow package knee pain, unspecified directions chronicity documented as of this encounter (statuses as of 10/26/2019) Active Problems Problem Noted Date Vaginal hemorrhage 07/08/2018 Chronic low back pain 04/01/2017 Follow-up examination, following other surgery 012 documented as of this encounter (statuses as of 10/26/2019) Social History Tobacco Use Types Packs/Day Years [...] of this encounter Last Filed Vital Signs Vital Sign Reading Time Taken Comments Blood Pressure 151/81 10/26/2019 8:13 AM CDT Pulse 117 10/26/2019 8:13 AM CDT Temperature - - Respiratory Rate - - Oxygen Saturation - - Inhaled Oxygen Concentration - - Weight 56.7 kg (125 lb) 10/26/2019 8:13 AM CDT Height 172.7 cm (5' 8") 10/26/2019 8:13 AM CDT Body Mass Index 19.01 10/26/2019 8:13 AM CDT documented in this encounter Progress Notes Mino Lares MD - 10/26/2019 8:00 AM CDT Cc: Chief Complaint Patient presents with Follow-up Left knee pain Shannon Bailey is a 54 year old female. 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 The incident occurred at home. There was no injury mechanism. The pain is present in the left knee. The quality of the pain is described as aching, burning and stabbing. The pain is at a severity of 6/10. The pain is moderate. The pain has been intermittent since onset. Associated symptoms include a loss of motion and muscle weakness. The symptoms are aggravated by movement and weight bearing. She has tried non-weight bearing, immobilization, heat, elevation and acetaminophen for the symptoms. The treatment provided no relief. Allergies Shannon is allergic to bee sting / venom. Medications Outpatient Medications Prior to Visit Medication Sig Dispense Refill ibuprofen 600 mg tablet Take 1 tablet by mouth every 8 (eight) hours as needed for Pain (scale 4-6). 15 tablet 0 dicyclomine (BENTYL) 10 mg capsule Take 1 capsule by mouth every 8 (eight) hours as needed for Abdominal pain. 30 capsule 0 ondansetron 4 mg disintegrating tablet Take 1 tablet by mouth every 8 (eight) hours as needed for Nausea and Vomiting (N/V). 20 tablet 0 sennosides-docusate sodium (COLACE 2-IN-1) 8.6-50 mg per tablet Take 1 tablet by mouth daily. 30tablet 0 sucralfate 1 gram tablet Take 1 tablet by mouth before meals and at bedtime. 30 tablet 0 acetaminophen-codeine (TYLENOL-CODEINE #3) 300-30 mg tablet Take 2 tablets by mouth every 6 (six) hours as needed for Pain (scale 7-10) (alternate with ibuprofen). 20 tablet 0 cyclobenzaprine 5 mg tablet Take 1 tablet by mouth 3 (three) times daily. 30 tablet 0 pantoprazole 40 mg EC tablet Take 1 tablet by mouth daily. 90 tablet 1 DULoxetine 60 mg capsule Take 1 capsule by mouth daily. 90 capsule 3 buprenorphine (BUTRANS) 20 mcg/hour PTWK Apply to skin. buprenorphine HCl (BELBUCA) [address] in cheeks 2 (two) times daily as needed. gabapentin 800 mg tablet Take 800 mg by mouth 3 (three) times daily. No facility-administered medications prior to visit. Histories Past Medical History: Diagnosis Date Anal fissure Chronic low back pain Fibromyalgia Hemorrhoid Past Surgical History: Procedure Laterality Date ADJACENT TISSUE REARRANGEMENT 10/08/2011 Surgeon:ANTONINO DA SILVA; Location:[facility] COVER[facility] - FACIAL 10/08/2011 HB SKIN SUB GRAFT FACE/NK/HF/G Right KNEE ARTHROSCOPY KNEE ARTHROSCOPY Right 2000; 2006 SPINE SURGERY TUBAL LIGATION Social History Socioeconomic History Marital status: Spouse name: Not on file Number of children: Not on file Years of education: Not on file Highest education level: Not on file Occupational History Not on file Social Needs Financial resource strain: Not on file Food insecurity: Worry: Not on file Inability: Not on file Transportation needs: Medical: Not on file Non-medical: Not on file Tobacco Use Smoking status: Current Every Day Smoker Packs/day: 0.50 Types: Cigarettes Smokeless tobacco: Former User Quit date: 10/05/2011 Substance and Sexual Activity Alcohol use: No Drug use: No Sexual activity: Yes Partners: Male Lifestyle Physical activity: Days per week: Not on file Minutes per session: Not on file Stress: Not on file Relationships Social connections: Talks on phone: Not on file Gets together: Not on file Attends hinduism service: Not on file Active member of club or organization: Not on file Attends meetings of clubs or organizations: Not on file Relationship status: Not on file Intimate partner violence: Fear of current or ex partner: Not on file Emotionally abused: Not on file Physically abused: Not on file Forced sexual activity: Not on file Other Topics Concern Not on file Social History Narrative Disabled from back Family History Family history unknown: Yes Review of Systems Constitutional: Negative. HENT: Negative. Eyes: Negative. Respiratory: Negative. Cardiovascular: Negative. Gastrointestinal: Negative. Genitourinary: Negative. Musculoskeletal: Negative. Skin: Negative. Neurological: Negative. Psychiatric/Behavioral: Negative. Endocrine: Endocrine negative Vital Signs BP (!) 151/81 (BP Location: Left arm, Patient Position: Sitting) | Pulse 117 | Ht 68" (172.7 cm) | Wt 56.7 kg (125 lb) | LMP 10/29/2011 | BMI 19.01 kg/m Physical Exam Musculoskeletal: Left knee: She exhibits decreased range of motion and swelling. Tenderness found. Medial joint line tenderness noted. General: Well-developed well-nourished oriented to person place and time HEENT normocephalic atraumatic atraumatic pupils equal round reactive to light extraocular muscles intact Cervical thoracic and lumbar spine without focal deficit normal kyphosis and lordosis Chest clear to auscultation and percussion Cardiovascular regular rate and rhythm without gallop rub or murmur soft without organomegaly Normal bowel sounds Neurologic: Focal myotome or dermatomal deficits Vascular: Intact symmetrical bilateral upper and lower extremities Skin without stasis varicosities or breakdown Extremities without cyanosis clubbing or edema Lymphatics no peripheral lymphedema Psych normal mood and affect. Neurovascular function is intact. To include brisk capillary refill warm pink skin active motor function and sensory function intact. Nursing note and vitals reviewed. Assessment/Plan Left knee pain Medrol dosepak documented in this encounter Plan of Treatment Health Maintenance Due Date Last Done Comments HEPATITIS C (HCV) SCREEN 1965 PNEUMOCOCCAL 0-64 YEARS COMBINED SERIES (1 of 1 - 1969 PPSV23) DTaP,Tdap,and Td Vaccines (1 - Tdap) 1974 Breast Cancer Screening (MAMMOGRAM) 2003 PAP SMEAR 02/03/2010 02/03/2007 COLONOSCOPY 2013 Zoster Recombinant Vaccine (SHINGRIX) (1 of 2) 2013 LUNG CANCER SCREEN: Recommended for age 55-80 with 30 2018 + pack year history INFLUENZA VACCINE (#1) 2019 documented as of this encounter Results XR KNEE <3 VW LEFT (10/26/2019 8:17 AM CDT) Specimen Narrative Performed At This result has an attachment that is no t available. Maintained joint interval PACS Performing Organization Address City/State/Zipcode Phone Number PACS documented in this encounter Visit Diagnoses Diagnosis Left knee pain, unspecified chronicity - Primary documented in this encounter Insurance Payer Benefit Plan / Subscriber ID Effective Phone Address T ype Group Dates [facility] [id number] 2019-Erica Pena dictaylor Adv HEALTHCARE COMPLETE nt PPO MEDICARE CHOICE ADVANTAGE documented as of this encounter
--- OUTSIDE RECORDS SUMMARY | 2019-12-15 17:01 | XMS REPORT | Summary of Care ---
:1965 Author Organization [facility] Address [address] [place] [address] Care Team Providers Name Role Phone Pcp, Does Not Have A Primary Care Provider Encounter Details Date Type Department Care Team Description 10/26/2019 Hospital Encounter [facility] hospital Jose Lares, [facility] Orthopedics - [place] Radiology [address] [place] [address] [address] [place] [address] [place], [place] [phone] [phone] Allergies Active Allergy Reactions Severity Noted Date Comments Bee Sting / Venom Swelling 06/08/2017 documented as of this encounter (statuses as of 10/27/2019) Medications Medication Sig Dispensed Refills Start Date [...] as of this encounter (statuses as of 10/27/2019) Active Problems Problem Noted Date Vaginal hemorrhage 07/08/2018 Chronic low back pain 04/01/2017 Follow-up examination, following other surgery 012 documented as of this encounter (statuses as of 10/27/2019) Social History Tobacco Use Types Packs/Day Years [...] SCREEN 1965 PNEUMOCOCCAL 0-64 YEARS COMBINED SERIES ( of - 1969 PPSV23) DTaP,Tdap,and Td Vaccines (1 - Tdap) 1974 Breast Cancer Screening (MAMMOGRAM) 2003 PAP SMEAR 02/03/2010 02/03/2007 COLONOSCOPY 2013 Zoster Recombinant Vaccine (SHINGRIX) (1 of 2) 2013 LUNG CANCER SCREEN: Recommended for age 55-80 with 30 2018 + pack year history INFLUENZA VACCINE (#1) 2019 documented as of this encounter Procedures Procedure Name Priority Date/Time Associated Diagnosis Comme nts XR KNEE <3 VW LEFT Routine 10/26/2019 8:17 AM Left knee pain, Results for this CDT unspecified procedure are i n chronicity the results section. documented in this encounter Results XR KNEE <3 VW LEFT (10/26/2019 8:17 AM CDT) Specimen Narrative Performed At This result has an attachment that is no t available. Maintained joint interval PACS Performing Organization Address City/State/Zipcode Phone Number PACS documented in this encounter Visit Diagnoses Diagnosis Left knee pain, unspecified chronicity documented in this encounter Insurance Payer Benefit Plan / Subscriber ID Effective Phone Address T ype Group Dates [facility] MEDICARE [id number] 2019-Prese Me dicare Adv HEALTHCARE COMPLETE nt PPO MEDICARE CHOICE ADVANTAGE documented as of this encounter
--- OUTSIDE RECORDS SUMMARY | 2019-12-15 17:01 | XMS REPORT | Summary of Care ---
:1965 Author Organization [facility] Address [address] [place] [address] Care Team Providers Name Role Phone Pcp, Does Not Have A Primary Care Provider Reason for Visit Reason Comments Pre-op Clearance COVID19 TESTING Encounter Details Date Type Department Care Team Description 11/30/2019 Nurse Visit [facility] Surgical Felix Queen MD [address] [place] [address] COVID-19 (Primary Dx) Specialties - [facility] on Nurse, [facility] General Surgery [address] [place] [address] Allergies Active Allergy Reactions Severity Noted Date Comments Bee Sting / Venom Swelling 06/08/2017 documented as of this encounter (statuses as of 11/30/2019) Medications Medication Sig Dispensed Refills Start Date [...] as of this encounter (statuses as of 11/30/2019) Active Problems Problem Noted Date Vaginal hemorrhage 07/08/2018 Chronic low back pain 04/01/2017 Follow-up examination, following other surgery 012 documented as of this encounter (statuses as of 11/30/2019) Social History Tobacco Use Types Packs/Day Years Used Date Current Every Day Smoker Cigarettes 0.5 Smokeless Tobacco: Former User Q uit: 10/05/2011 Alcohol Use Drinks/Week oz/Week Comments No Sex Assigned at Date Recorded Not on file Job Start Date Occupation Industry Not on file Not on file Not on file Travel History Travel Start Travel End No recent travel history available. COVID-19 Exposure Response Date Recorded In the last month, have you been in contact with No / Unsure 11/30/2019 1:34 PM CDT someone who was confirmed or suspected to have Coronavirus / COVID-19? documented as of this encounter Last Filed Vital Signs Vital Sign Reading Time Taken Comments Blood Pressure - - Pulse - - Temperature 36.8 C (98.2 F) 11/30/2019 1:34 PM CDT Respiratory Rate - - Oxygen Saturation - - Inhaled Oxygen Concentration - - Weight - - Height - - Body Mass Index - - documented in this encounter Progress Notes Veronica Sahni - 11/30/2019 1:00 PM CDNicolediane Bailey is a 54 year old female comes to clinic independent in ambulation for PRE OP TESTING. Pt comes accompanied by mother . Pt in NAD w/ pain reported 0/10. Pt preferred language is [place]. Pt. denies fall in last 12 months. Allergies and medications reviewed and updated. Verbal consent obtained for collection of nasopharyngeal swab. Information in link below was given. Https://www.cdc.gov/coronavirus/2019-ncov/downloads/bxzbjhofn-wst-qpgrznjg-2019- nCoV.pdf Veronica Sahni 11/30/2019 1:35 PM documented in this encounter Plan of Treatment Date Type Specialty Care Team Description 12/03/2019 Hospital Encounter Surgery Felix Trujillo MD [address], [place] [phone] 12/03/2019 Anesthesia Event Surgery Herbie Kirkland, C [address] [phone] 12/03/2019 Surgery Surgery Cassandra, ESOPHAGOGASTRO DUODENOSCOPY Felix Miner MD [address], [place] [address] [phone] Name Type Priority Associated Diagnoses Order S chedule CORONAVIRUS COVID-19 LAB Routine COVID-19 Expecte d: 11/30/2019, TESTING Expires: 2020 Health Maintenance Due Date Last Done Comments [...] 2019 documented as of this encounter Results Not on filedocumented in this encounter Visit Diagnoses Diagnosis COVID-19 - Primary documented in this encounter Insurance Payer Benefit Plan / Subscriber ID Effective Phone Address T ype Group [facility] MEDICARE [id number] 2019-Erica butler [facility] HEALTHCARE COMPLETE nt PPO MEDICARE CHOICE ADVANTAGE documented as of this encounter
--- OUTSIDE RECORDS SUMMARY | 2019-12-15 17:01 | XMS REPORT | Summary of Care ---
:1965 Author Organization [facility] Address [address] [place] [address] Care Team Providers Name Role Phone Pcp, Does Not Have A Primary Care Provider Reason for Referral Radiology Services (Routine) Status Reason Specialty Diagnoses / Referred By Referred To Procedures Contact Contact New Request Diagnostic Diagnoses Left knee pain, unspecified chronicity Mino Lares Radiology Procedures XR KNEE <3 VW DI Griffin MD [address] [place] [address] Reason for Visit Reason Comments Follow-up Left knee pain Encounter Details Date Type Department Care Team Description 10/26/[address] [facility] Orthopaedic Mino Lares eft knee pain, Surgery- Steve Griffin MD unspecified chronicity [address], [address] (Primary Dx) [facility] [place] [address] [place], [place] [phone] Allergies Active Allergy Reactions Severity Noted [...] file Gets together: Not on file Attends faith service: Not on file Active member of [...] Group Dates [facility] MEDICARE [id number] 2019-Erica Pena dictaylor Adv HEALTHCARE COMPLETE nt PPO MEDICARE CHOICE ADVANTAGE documented as of this encounter
--- OUTSIDE RECORDS SUMMARY | 2019-12-15 17:01 | XMS REPORT | Summary of Care ---
:[address] [facility] Address [address] [place] [address] Care Team Providers Name Role Phone Jarrod Mahoney MD Primary Care Provider Reason for Visit Auth/Cert Status Reason Specialty Diagnoses / Procedures Referred By C ontact Referred To Contact Radiology Diagnoses Pain in unspecified joint Adc X-Ray Procedures CHG CHEST X-RAY [address] [place] [address] Phone: Fax: Encounter Details Date Type Department Care Team Description 03/06/2019 Hospital Encounter [facility] Radiolog y Arrived [facility] [address] [place] [address] [place] [address] [place] [address] Allergies Active Allergy Reactions Severity [...] Priority Date/Time Associated Diagnosis Comme nts XR LUMBAR SPINE 2 Routine 03/06/2019 12:34 PM Pain in joint, R esults for this VW CDT multiple sites procedure are in the results section. documented in this encounter Results XR LUMBAR SPINE 2 VW (03/06/2019 12:34 PM CDT) Specimen Narrative Performed At This result has an attachment that is no t available. HISTORY:Low back pain. PACS/VR/DOSE FINDINGS: AP and lateral views of lumbar spines are ob tained and compared with 02/15/2017 study. 6 lumbar vertebrae with no acute compression fracture or dislocation. No aggressive bone lesions. Exaggerated lumbar lordosis in the lateral view and lo wer lumbar levoscoliosis in the AP view noted, associated with mo derate degenerative disc disease affecting right side of L5-L6. Mild landaverde es of degenerative disc disease noted at L4-L5 with slightly narrowed dis c space and osteophytes along the ventral and lateral vertebral ma rgins. Mild facet arthritis noted at lower 3 lumbar levels. Comparison with the previous study of 06/27/2017 showe d no significant interval change. CONCLUSIONS: 6 lumbar vertebral body with lower lumbar levoscoliosis, exaggerated lordosis, degenerative disc disease at L4- L5 and L5-L6, lower 3 lumbar level facet arthritis, essentially unchanged wh en compared to 02/15/2017 study. Procedure Note [facility], Radiant Results Inft User - 2018 12:46 PM CDT HISTORY: Low back pain. FINDINGS: AP and lateral views of lumbar spines are obtained and compared with 02/15/2017 study. 6 lumbar vertebrae with no acute compression fracture or dislocation. No aggressive bone lesio ns. Exaggerated lumbar lordosis in the later al view and lower lumbar levoscoliosis in the AP view noted, asso ciated with moderate degenerative disc disease affecting right side of L5- L6. Mild changes of degenerative disc disease noted at L4-L5 with slightl y narrowed disc space and osteophytes along the ventral and latera l vertebral margins. Mild facet arthritis noted at lower 3 david mbar levels. Comparison with the previous study of showed no significant interval change. CONCLUSIONS: 6 lumbar vertebral body wit h lower lumbar levoscoliosis, exaggerated lordosis, degenerative disc disease at L4-L5 and L5-L6, lower 3 lumbar level facet arthritis, essentiall y unchanged when compared to 02/15/2017 study. Performing Organization Address City/State/Zipcode Phone Number PACS/VR/DOSE documented in this encounter Visit Diagnoses Diagnosis Pain in joint, multiple sites documented in this encounter Insurance Payer Benefit Plan / Subscriber ID Effective Phone Address T ype Group Dates [facility] MEDICARE [id number] 2019-Erica butler [facility] HEALTHCARE COMPLETE nt PPO MEDICARE CHOICE ADVANTAGE documented as of this encounter
--- OUTSIDE RECORDS SUMMARY | 2019-12-15 17:02 | XMS REPORT ---
:1965 Author Organization [facility] t Address [address] [place] [address] Dr. Jeffers [address] [place] [address] Care Team Providers Name Role Phone Unavailable Unavailable Unavailable Problems This patient has no known problems. Allergies, Adverse Reactions, Alerts This patient has no known allergies or adverse reactions. Medications This patient has no known medications.
--- OUTSIDE RECORDS SUMMARY | 2019-12-15 17:02 | XMS REPORT | Summary of Care ---
:1965 Author Organization [facility] Address [address] [place] [address] Care Team Providers Name Role Phone Pcp, Does Not Have A Primary Care Provider Reason for Visit Reason Comments Lab Results Encounter Details Date Type Department Care Team Description 11/30/2019 Telephone [facility] [place] and Pastor Trujillo, Lab Results Clinics [address] [place] [address] [place] [phone] [address] [phone] [place] [phone] Allergies Active Allergy Reactions Severity Noted Date [...] MD [address] [place] [address] [phone] 12/03/2019 Anesthesia Event Surgery Herbie Kirkland, [address] [phone] 12/03/2019 Surgery Surgery Cassandra, ESOPHAGOGASTRO DUODENOSCOPY Felix Miner MD [address], [place] [address] [phone] Health Maintenance Due Date Last Done Comments [...] Effective Phone Address T ype Group Dates [facility] MEDICARE [id number] 2019-Erica butler Adv HEALTHCARE COMPLETE nt PPO MEDICARE CHOICE ADVANTAGE documented as of this encounter
--- OUTSIDE RECORDS SUMMARY | 2019-12-15 17:02 | XMS REPORT | Summary of Care ---
:1965 Author Organization [facility] Address [address] [place] [address] Care Team Providers Name Role Phone Pcp, Does Not Have A Primary Care Provider Reason for Visit Auth/Cert Status Reason Specialty Diagnoses / Procedures Referred By R eferred To Contact Contact Surgery Diagnoses Abnormal findings on diagnostic imaging of other abdominal regions, including retroperitoneum Pain RUQ, Dysphagia R93.5 (ICD-10-CM) - Abnormal findings on diagnostic imaging of other abdominal regions, including retroperitoneum Adc Pre/P acu/Post Procedures IA EGD TRANSORAL BIOPSY SINGLE/MULTIPLE ESOPHAGOGASTRODUODENOSCOPY [address] - IA EGD TRANSORAL BIOPSY SINGLE/MULTIPLE [address] [place] [address] Fax: Encounter Details Date Type Department Care Team Description 12/03/2019 Hospital Encounter [facility] MD Isidra [address] [place] [address] [id number], [place] [phone] Allergies Active Allergy Reactions Severity Noted Date Comments Bee Sting / Venom Swelling 06/08/2017 documented as of this encounter (statuses as of 12/04/2019) Medications Medication Sig Dispensed Refills Start Date [...] as of this encounter (statuses as of 12/04/2019) Active Problems Problem Noted Date Vaginal hemorrhage 07/08/2018 Chronic low back pain 04/01/2017 Follow-up examination, following other surgery 012 documented as of this encounter (statuses as of 12/04/2019) Social History Tobacco Use Types Packs/Day Years Used Date Current Every Day Smoker Cigarettes 0.5 Smokeless Tobacco: Former User Q uit: 10/05/2011 Tobacco Cessation: Ready to Quit: No Alcohol Use Drinks/Week oz/Week Comments No Sex Assigned at Date Recorded Not on file Job Start Date Occupation Industry Not on file Not on file Not on file Travel History Travel Start Travel End No recent travel history available. COVID-19 Exposure Response Date Recorded In the last month, have you been in contact with No / Unsure 12/03/2019 7:43 AM CDT someone who was confirmed or suspected to have Coronavirus / COVID-19? documented as of this encounter Last Filed Vital Signs Vital Sign Reading Time Taken Comments Blood Pressure 158/96 12/03/2019 9:30 AM CDT Pulse 59 12/03/2019 9:30 AM CDT Temperature 36.3 C (97.4 F) 12/03/2019 9:03 AM CDT Respiratory Rate 20 12/03/2019 9:30 AM CDT Oxygen Saturation 97% 12/03/2019 9:30 AM CDT Inhaled Oxygen Concentration - - Weight 59 kg (130 lb 1.1 oz) 11/30/2019 11:19 AM CDT Height 172.7 cm (5' 7.99") 11/30/2019 11:19 AM CDT Body Mass Index 19.78 11/30/2019 11:19 AM CDT documented in this encounter Discharge Instructions Maryann Brown RN - 12/03/2019General Discharge Instructions: Procedure: Endoscopy Your throat may be numb after the procedure. Later, it may also be sore. Do not eat or drink for one hour after the test or until the feeling in your throat returns. Drink water first and then begin to eat solid foods when you are comfortable. You can use throat lozenges if you need them to soothe any discomfort. Ask the pharmacist to recommend a throat medication for you. Advance your diet: Once the sensation in your throat has fully returned and can tolerate liquids, you may resume a normal diet but first start with a light meal that is not greasy or fatty. If youare passing gas and this light meal does not bother your stomach you may continue with a normal dietfor the next meal. Resume your home medications. The medication you were given for the procedure may make you dizzy or sleepy. Do not drive, operate machinery or walk for long distances in the heat for at least 12 hours. Many patients feel very tired following these procedures and need to rest for several hours. The procedure may cause mild discomfort in the abdominal area, but the pain should disappear within several hours. Notify your physician if you have pain or tenderness for more than six hours or ifyou notice an increase in abdominal size. The arm vein where medication was given may be tender. Apply a warm compress. If the pain persists for more than 12 hours, call your doctor. You will probably belch during the first few hours after the exam. Light exercise like walking may help relieve bloating or gas pains. Avoid extreme heat when you exercise. Special Instructions: Although these symptoms may not be related to your procedure, call your doctor immediately if you- Become short of breath Get dizzy Have a fever Experience chest pain Have rapid or irregular heart rate If you had biopsies your physician will call you with the results in approximately one week and advise you of when to follow-up. Contact Information Gastroenterology Department [phone] Colorectal Surgery [phone] After Hours (Non-Urgent Concerns): [facility] Access Line [phone] and ask to speak to the physician covering General Surgical Discharge Instructions: ? The medication that was used will be acting in your system for the next 24 hours, so you might feel a little drowsy, with impaired judgment and/ or motor function. This feeling should wear off. Because the medication is still in your system for the next 24 hours you SHOULD NOT: o Drive a car, operate machinery or power tools. o Drink any alcoholic beverages. o Make any important decisions or sign any legal documents. ? You should rest the remainder of the day and not engage in any physical activity. YOU ARE RESPONSIBLE FOR HAVING SOMEONE AT HOME WITH YOU DURING THE AFTERNOON AND NIGHT IMMEDIATELY FOLLOWING YOUR SURGERY. Patients should cough and deep breathe every 2-4 hours while awake to avoid respiratory complications. ? Because the medications used could produce some residual nausea and vomiting after you go home, you should eat lightly today, starting with clear liquids (broth, soft drinks, apple juice, jello) and toast or crackers, progressing to your normal diet as tolerated. If you get sick, wait a couple of hours and then begin to eat. After 24 hours the nausea should be gone. If your nausea persists, callyour physician. ? You may experience some pain and your physician will advise you on what to take for discomfort. This should be taken as directed. If the pain is not relieved, contact your physician. You may also have a sore throat from the airway/ breathing tube that was in place. You may use lozenges, throat spray (Chloraseptic), or warm salt water gargles for symptomatic relief. ? If you are unable to urinate within five hours after your procedure, call your physician. ? The type of surgery performed will determine how much bleeding (if any) to expect. Normally, somespotting might occur. If your dressing pad become saturated, notify your physician. Elevate surgical site, if applicable, to reduce swelling and pain. ? Preventing a surgical site infection: o Dont smoke. It is best to quit at least 30 days before surgery, but quitting after surgery is also helpful. o If you are a diabetic, keep your blood sugar well controlled. WASH YOUR HANDS. o Keep your wound clean and remember to wash your hands before and after contact with the area. o Call your doctor if you have signs of infection: ? increased tenderness at the surgical site ? red streaks or increased redness of the area ? bad-smelling discharge from the incision ? fever of 101 or higher TOBACCO AVOIDANCE Exposure to tobacco either from smoking or from second hand (environmental)smoke or smokeless tobacco (snuff) is damaging to your health. This information is to encourage everyone to avoid tobacco exposure. It is recommended that you: If you smoke or use smokeless tobacco, we encourage you to quit. If you have already quit smoking, continue your good work! If you do not smoke or use smokeless tobacco, do not start. Avoid secondhand smoke. Additional Resources: You may want to contact these organizations for further information on smoking and how to quit- [place] [employer] - http://www.lungusa.org/stop-smoking/ [place] [employer] - http://www.cancer.org/Healthy/StayAwayfromTobacco/index [place] [employer] - http://www.heart.org/HEARTORG/GettingHealthy/QuitSmoking/Quit-Smoking _[facility]_001085_SubHomePage.jsp AttachmentsThe following attachments cannot be sent through Care Everywhere. Hiatal Hernia, What Is a (Portuguese)documented in this encounter Plan of Treatment Name Type Priority Associated Diagnoses Date/Ti wy SURGICAL PATHOLOGY EXAM LAB STAT 11/07 8:55 AM CDT Name Type Priority Associated Diagnoses Order S [facility] SURGICAL PATHOLOGY EXAM LAB Routine ONCE for 1 Occurrences starting 2019 Health Maintenance Due Date Last Done Comments [...] Procedure Name Priority Date/Time Associated Comments Diagnosis ESOPHAGOGASTRODUODENOSCOPY Level 4 12/03/2019 same, see (within 0-5 8:31 AM CDT providers post days) OP note EGD (ENDO) Routine 12/03/2019 8:28 AM CDT CONSENT/REFUSAL FOR DIAGNOSIS Routine 12/03/2019 AND TREATMENT 7:36 AM CDT ASSIGNMENT OF BENEFITS Routine 12/03/2019 7:35 AM CDT DAY SURGERY - ADC Routine 12/03/2019 12:01 AM CDT documented in this encounter Results Not on filedocumented in this encounter Visit Diagnoses Diagnosis Esophageal dysphagia - Primary Dysphagia, pharyngoesophageal phase documented in this encounter Administered Medications Medication Order MAR Action Action Date Dose Rate Site simethicone (GAS RELIEF Given 12/03/2019 8:46 AM CDT 1.2 mL (SIMETHICONE)) 40 mg/0.6 mL drops PRN, Starting 12/03/19 at 0846, Until Discontinued, Routine, Intra-op water for irrigation irrigation solution Given 12/03/2019 8:46 AM CDT 1,000 mL PRN, Starting 12/03/19 at 0846, Until Discontinued, Routine, Intra-op documented in this encounter Insurance Payer Benefit Plan / Subscriber ID Effective Phone Address T ype Group Dates [facility] MEDICARE [id number] 2019-Prese Me butler Adv HEALTHCARE COMPLETE nt PPO MEDICARE CHOICE ADVANTAGE documented as of this encounter
--- NOTE | 2019-12-15 18:02 | ER ---
Nurse's Notes [facility] Name: Shannon Bailey Age: 54 yrs Sex: Female : 1965 Arrival Date: 12/15/2019 Time: 17:00 Bed 4 Private MD: Cade Williamson E Diagnosis: Laceration without foreign body of left hand-index finger, puncture via drill Presentation: 12/14 17:09 Chief complaint: Patient states: Accidentally drilled into left hand 2nd digit today ll1 with drill. States she is having trouble getting the bleeding to stop. Bandage in place, no active bleeding through bandage. Coronavirus screen: Proceed with normal triage. Patient denies a cough. Patient denies shortness of breath or difficulty breathing. Patient denies measured and/or subjective temperature greater than 100.4F prior to today's visit. Patient denies travel on a cruise ship or to a country the [facility] currently lists as an affected area. Patient denies contact with known and/or suspected case of COVID-19. covid test negative. Ebola Screen: Patient denies travel to an Ebola-affected area in the 21 days before illness onset. Initial Sepsis Screen: Does the patient meet any 2 criteria? No. Patient's initial sepsis screen is negative. Does the patient have a suspected source of infection? No. Patient's initial sepsis screen is negative. Risk Assessment: Do you want to hurt yourself or someone else? Patient reports no desire to harm self or others. Onset of symptoms was December 15, 2019. 17:09 Method Of Arrival: Ambulatory ll1 17:09 Acuity: EITAN 4 ll1 Historical: - Allergies: 17:13 No Known Allergies; ll1 - PMHx: 17:13 Arthritis; skin cancer; spinal arthritis; Fibromyalgia; Degenerative disc disease; ll1 - PSHx: 17:13 neck surg x 2; esophagus expansion; Knee surgery; facial reconstruction; ll1 - Social history:: Smoking status: Patient reports the use of cigarette tobacco products, smokes one-half pack cigarettes per day, Patient/guardian denies using alcohol, street drugs. - Family history:: not pertinent. Screenin:00 Abuse screen: Denies threats or abuse. Nutritional screening: No deficits noted. em Tuberculosis screening: No symptoms or risk factors identified. Fall Risk None identified. Assessment: 18:00 General: Appears in no apparent distress. comfortable, Behavior is calm, cooperative, em appropriate for age. Pain: Complains of pain in palmar aspect of distal phalanx of left index finger Pain currently is 10 out of 10 on a pain scale. Neuro: Level of Consciousness is awake, alert, obeys commands, Oriented to person, place, time, situation, Appropriate for age. Cardiovascular: Capillary refill < 3 seconds Patient's skin is warm and dry. Respiratory: Airway is patent Respiratory effort is even, unlabored, Respiratory pattern is regular, symmetrical. Derm: Skin is intact, Skin is pink, warm \T\ dry. Wound noted palmar aspect of distal phalanx of left index finger. Musculoskeletal: Capillary refill < 3 seconds, Range of motion: intact in all extremities. Vital Signs: 17:09 BP 164 / 91; Pulse 65; Resp 18; Temp 98.2; Pulse Ox 99% ; Pain 10/10; ll1 ED Course: 17:00 Patient arrived in ED. am2 17:00 Cade Williamson MD is Private Physician. am2 17:11 Triage completed. ll1 17:13 Arm band placed on Patient placed in an exam room, on a stretcher. ll1 17:21 Hermelindo Hunt MD is Attending Physician. galen 17:42 Raoul Art, OBEY is Primary Nurse. em 18:00 Cade Williamson MD is Referral Physician. galen 18:00 Patient has correct armband on for positive identification. Bed in low position. em 18:06 Hand Left 3 View XRAY: attn left index finger In Process Unspecified. EDMS 18:13 Wound care: to located on palmar aspect of distal phalanx of left index finger was mh5 dressed with Neosporin, 2x2. 18:22 No provider procedures requiring assistance completed. Patient did not have IV access em during this emergency room visit. Administered Medications: 18:19 Drug: Tetanus-Diphtheria Toxoid Adult 0.5 ml {Materials Assistant: [employer]. Exp: em 09/21/2021. Lot #: [id number]. } Route: IM; Site: right deltoid; 18:20 Follow up: Response: Medication administered at discharge. em 18:19 Drug: KeFLEX 500 mg Route: PO; em 18:21 Follow up: Response: Medication administered at discharge. em 18:19 Drug: Bactroban Ointment 2 % 1 application Route: Topical; Site: left hand; em 18:21 Follow up: Response: Medication administered at discharge. em Outcome: 18:01 Discharge ordered by . galen 18:24 Discharged to home ambulatory. em 18:24 Condition: good 18:24 Discharge instructions given to patient, Instructed on discharge instructions, follow up and referral plans. medication usage, Demonstrated understanding of instructions, follow-up care, medications, Prescriptions given X 3. 18:25 Patient left the ED. em Signatures: Dispatcher [employer] Hermelindo Velazquez MD MD cha Munoz, Edgar, RN RN Corin Luna [facility] Brenda Davison am2 Noreen Cardenas RN RN ll1
--- NOTE | 2019-12-15 18:02 | EDPHYS ---
Physician Documentation [facility] Name: Shannon Bailey Age: 54 yrs Sex: Female : 1965 Arrival Date: 12/15/2019 Time: 17:00 Bed 4 Private MD: Cade Williamson E ED Physician Hermelindo Hunt HPI: 12/14 17:53 This 54 yrs old Female presents to ER via Ambulatory with complaints of galen Finger Injury. 17:53 Trauma demographics: County: The injury occurred in [place]. Mechanism of injury: galen Penetrating trauma: inflicted by drill. Associated injuries: The patient sustained palmar aspect of distal phalanx of left index finger. Onset: The symptoms/episode began/occurred yesterday. The patient has not experienced similar symptoms in the past. Historical: - Allergies: 17:13 No Known Allergies; ll1 - PMHx: 17:13 Arthritis; skin cancer; spinal arthritis; Fibromyalgia; Degenerative disc disease; ll1 - PSHx: 17:13 neck surg x 2; esophagus expansion; Knee surgery; facial reconstruction; ll1 - Social history:: Smoking status: Patient reports the use of cigarette tobacco products, smokes one-half pack cigarettes per day, Patient/guardian denies using alcohol, street drugs. - Family history:: not pertinent. ROS: 17:53 Constitutional: Negative for fever, chills, and weight loss, Eyes: Negative for injury, galen pain, redness, and discharge, ENT: Negative for injury, pain, and discharge, Neck: Negative for injury, pain, and swelling, Cardiovascular: Negative for chest pain, palpitations, and edema, Respiratory: Negative for shortness of breath, cough, wheezing, and pleuritic chest pain, Abdomen/GI: Negative for abdominal pain, nausea, vomiting, diarrhea, and constipation, Back: Negative for injury and pain, : Negative for injury, bleeding, discharge, and swelling, Skin: Negative for injury, rash, and discoloration, Neuro: Negative for headache, weakness, numbness, tingling, and seizure, Psych: Negative for depression, anxiety, suicide ideation, homicidal ideation, and hallucinations, Allergy/Immunology: Negative for hives, rash, and allergies, Endocrine: Negative for neck swelling, polydipsia, polyuria, polyphagia, and marked weight changes, Hematologic/Lymphatic: Negative for swollen nodes, abnormal bleeding, and unusual bruising. 17:53 MS/extremity: Positive for pain, swelling, tenderness, of the palmar aspect of distal phalanx of left index finger. Exam: 17:53 Constitutional: This is a well developed, well nourished patient who is awake, alert, galen and in no acute distress. Head/Face: Normocephalic, atraumatic. Eyes: Pupils equal round and reactive to light, extra-ocular motions intact. Lids and lashes normal. Conjunctiva and sclera are non-icteric and not injected. Cornea within normal limits. Periorbital areas with no swelling, redness, or edema. ENT: Nares patent. No nasal discharge, no septal abnormalities noted. Tympanic membranes are normal and external auditory canals are clear. Oropharynx with no redness, swelling, or masses, exudates, or evidence of obstruction, uvula midline. Mucous membranes moist. Neck: Trachea midline, no thyromegaly or masses palpated, and no cervical lymphadenopathy. Supple, full range of motion without nuchal rigidity, or vertebral point tenderness. No Meningismus. Chest/axilla: Normal chest wall appearance and motion. Nontender with no deformity. No lesions are appreciated. Cardiovascular: Regular rate and rhythm with a normal S1 and S2. No gallops, murmurs, or rubs. Normal PMI, no JVD. No pulse deficits. Respiratory: Lungs have equal breath sounds bilaterally, clear to auscultation and percussion. No rales, rhonchi or wheezes noted. No increased work of breathing, no retractions or nasal flaring. Abdomen/GI: Soft, non-tender, with normal bowel sounds. No distension or tympany. No guarding or rebound. No evidence of tenderness throughout. Back: No spinal tenderness. No costovertebral tenderness. Full range of motion. Skin: Warm, dry with normal turgor. Normal color with no rashes, no lesions, and no evidence of cellulitis. Neuro: Awake and alert, GCS 15, oriented to person, place, time, and situation. Cranial nerves II-XII grossly intact. Motor strength 5/5 in all extremities. Sensory grossly intact. Cerebellar exam normal. Normal gait. Psych: Awake, alert, with orientation to person, place and time. Behavior, mood, and affect are within normal limits. 17:53 Musculoskeletal/extremity: Extremities: noted in the palmar aspect of distal phalanx of left index finger: decreased ROM, laceration, pain, swelling, tenderness, ROM: no acute changes, intact in all extremities, Circulation is intact in all extremities. Compartment Syndrome exam of affected extremity: is normal. Joints: All joints appear normal with full range of motion. DVT Exam: negative Homans' sign noted on exam, no appreciated bluish discoloration, no erythema, no increased warmth, pain, swelling, tenderness. Vital Signs: 17:09 BP 164 / 91; Pulse 65; Resp 18; Temp 98.2; Pulse Ox 99% ; Pain 10/10; ll1 Laceration: 17:58 Wound Repair of .5cm ( 0.2in ) subcutaneous laceration to palmar aspect of distal galen phalanx of left index finger. Skin/tissue flap noted.. removed. Distal neuro/vascular/tendon intact. Anesthesia: none with 0 mls of 1% lidocaine. Wound prep: Simple cleansing by me, Copious irrigation. Skin closed with none, wound dressed no sutures using simple sutures and sterile technique. Dressed with Neosporin, non-adherent dressing. Patient tolerated well. MDM: 17:21 Patient medically screened. galen 17:55 Data reviewed: vital signs, nurses notes, radiologic studies, plain films. [facility] 17:55 Differential diagnosis: extremity fracture. Data interpreted: visiting housekeeper: not galen applicable for this patient encounter. Test interpretation: by ED physician or midlevel provider: plain radiologic studies. Counseling: I had a detailed discussion with the patient and/or guardian regarding: the historical points, exam findings, and any diagnostic results supporting the discharge/admit diagnosis, radiology results, the need for outpatient follow up. ED course: left index finger volar surface punctured 1 day ago by a drill, bleed again today , pt got concerned and came to the er. bleeding controlled, xrays done , wound trimmed up and covered. pt will follow up dr collazo.. 18:00 ED course: no subungal hematoma. [facility] 05 17:53 Order name: Hand Left 3 View XRAY: attn left index finger [facility] 12/14 17:53 Order name: Suture Tray Setup; Complete Time: 18:13 galen Administered Medications: 18:19 Drug: Tetanus-Diphtheria Toxoid Adult 0.5 ml {Associate Professor Of Music: [employer]. Exp: em 09/21/2021. Lot #: [id number]. } Route: IM; Site: right deltoid; 18:20 Follow up: Response: Medication administered at discharge. em 18:19 Drug: KeFLEX 500 mg Route: PO; em 18:21 Follow up: Response: Medication administered at discharge. em 18:19 Drug: Bactroban Ointment 2 % 1 application Route: Topical; Site: left hand; em 18:21 Follow up: Response: Medication administered at discharge. em Disposition: 12/15/19 18:01 Discharged to Home. Impression: Laceration without foreign body of left hand - index finger, puncture via drill. - Condition is Stable. - Discharge Instructions: Laceration Care, Adult, Puncture Wound, Laceration Care, Adult, [id number], Puncture Wound, [id number]. - Prescriptions for Bactroban 2 % Topical Ointment - Apply to affected area 1 application by TOPICAL route every 12 hours; 15 gram. Keflex 500 mg Oral Capsule - take 1 capsule by ORAL route every 6 hours for 7 days; 28 capsule. Tylenol- Codeine #3 300-30 mg Oral Tablet - take 2 tablets by ORAL route every 6 hours As needed; 20 tablet. - Medication Reconciliation Form, Thank You Letter, Antibiotic Education, Prescription Opioid Use form. - Follow up: Cade Williamson MD; When: 2 - 3 days; Reason: Recheck today's complaints, Continuance of care, Re-evaluation by your physician. - Problem is new. - Symptoms have improved. Signatures: Dispatcher [employer] Hermelindo Velazquez MD MD cha Munoz, Edgar, RN RN Noreen Pond RN RN ll1 Corrections: (The following items were deleted from the chart) 18:25 18:01 12/15/2019 18:01 Discharged to Home. Impression: Laceration without foreign body em of left hand - index finger, puncture via drill. Condition is Stable. Forms are Medication Reconciliation Form, Thank You Letter, Antibiotic Education, Prescription Opioid Use. Follow up: Cade Williamson; When: 2 - 3 days; Reason: Recheck today's complaints, Continuance of care, Re-evaluation by your physician. Problem is new. Symptoms have improved. galen
[2019-12-15] MEDS ORDERED: CEPHALEXIN 250 MG CAP ONE (18:14)
[2019-12-15] MEDS ORDERED: TETANUS & DIPHTHERIA TOX,ADULT 0.5 ML VIAL ONE (18:14)
[2019-12-15] MEDS ORDERED: MUPIROCIN 2% OINT 22GM TUBE TOP ONE (18:14)
--- NOTE | 2019-12-15 18:24 | RAD REPORT ---
EXAM DESCRIPTION: RAD - Hand Left 3 View - 12/15/2019 6:06 pm CLINICAL HISTORY: puncture;Pain, injury to second digit COMPARISON: Left hand January 2018 FINDINGS: No fracture, dislocation or periosteal reaction noted. Soft tissue swelling involves the l eft second digit. No foreign body. IMPRESSION: Left second digit soft tissue swelling without foreign body.
[2019-12-15 18:37] VITALS: BP 129/93; TEMP 98.3; O2SAT 96
== END 2019-12-15 18:25 | disposition home or self-care (01) ==
LOC: ER 16:56
PROC: 0JQK0ZZ Repair Left Hand Subcutaneous Tissue and Fascia, Open Approach (ICD-10-PCS; principal; 2019-12-15)
DX: S61.211A Laceration without foreign body of left index finger without damage to nail, initial encounter (principal); W29.8XXA Contact with other powered hand tools and household machinery, initial encounter; Y93.9 Activity, unspecified; Z23 Encounter for immunization; Z85.828 Personal history of other malignant neoplasm of skin; F17.210 Nicotine dependence, cigarettes, uncomplicated
CPT/HCPCS: 90471; 90714; 99284